=== PATIENT | male | born 1955 | race Caucasian/White ===

== ENCOUNTER → 2016-07-10 | Outpatient (CLI) | payer OTHER ==
[~2016-07-10] MED LIST: ACETAMINOPHEN325 M1 PO; ALLOPURINOL 10100 M1 PO; ARICEPT10 M1 PO; ASPIR 8181 MG PO; ASPIRIN325 PO; ATORVASTATIN CA20 MG PO; BENADRYL25 MG PO; CLONAZEPAM 1 MG1 M1 PO; HYDROCODONE-IBU1 TAB PO; LIPITOR 20 MG T20 M1 PO; LISINOPRIL10 MG PO; LOPRESSOR50 PO; MEDROL DOSPAK21 TAB PO; MELOXICAM7.5 MG PO; NAMENDA XR28 MG PO; NORVASC10 MG PO; OLANZAPINE5 MG PO; PHENERGAN 25 MG25 M1 PO; POTASSIUM PO; PREDNISONE 1 MG1 M1 PO; SERTRALINE HCL100 MG PO; TRAZODONE HCL100 MG PO; ZESTORETIC 20-1 EAC3 PO
--- NOTE | ~2016-07-10 | PFR/MVV ---
[facility] [place] [address] PULMONARY FUNCTION MVV/REPORT Name: FOREIGN STEELE Room #: REG [facility]#: [id number] Admission: 07/10/16 Attend Phys: Sunny Lacy MD Discharge: Date of : 51 Report #: [id number] THIS REPORT FOR: //name// COPIES FOR: AGE: 61 SEX/RACE: M/C >> SPIROMETRY: (BTPS) Height: 74 in cm Weight: 215 lbs kg Exam Date: 07/10/16 PRE-RX POST-RX PRED BEST %PRED BEST %PRED %CHG FVC LITERS . 5.21 . 5.5 . 106 . 5.66 . 109 . 3 FEV1 LITERS . 4.15 . 3.75 . 90 . 3.73 . 90 . -0 FEV1/FVC % . 78 . 68 . 87 . 66 . 84 . -3 IJJ25-79% L/Sec . 4.08 . 2.34 . 57 . 2.27 . 56 . -3 PEF L/SEC . 9.47 . 7.39 . 78 . 5.96 . 63 . -19 FEF50/FIF50 UNITLESS . <1.00 . 1.96 . . 2.03 . . 4 MVV L/Min . 150 . 71 . 47 f 1/Min . . 90 . >> LUNG VOLUMES: (BTPS) PRE-RX POST-RX PRED AVG %PRED AVG %PRED %CHG VC Liters . 5.21 . 5.5 . 106 . . . TLC Liters . 7.57 . 9.89 . 131 . . . RV Liters . 2.70 . 4.39 . 163 . . . RV/TLC % . 38 . 44 . 116 . . . FRC PL Liters . 4.12 . 6.63 . 161 . . . FRC N2 Liters . 4.12 . . . . . ERV Liters . . 2.24 . . . . IC Liters . . 3.16 . . . . >> DIFFUSION: DLCO ml/Min/mmHg . 26.5 . 25.5 . 96 . . . DL Ron ml/Min/mmHg . 26.5 . 25.5 . 96 . . . DLCO/VA ml/Min/mmHg . 3.81 . 3.62 . 95 . . . VA Liters . . 7.05 . . . . [facility] [address] [place] [address] PULMONARY FUNCTION MVV/REPORT Name: FOREIGN STEELE Room #: REG [facility]#: [id number] Admission: 07/10/16 Attend Phys: Sunny Lacy MD Discharge: Date of : 51 Report #: [id number] COMMENTS: COMMENTS: >> RESISTANCE: PRE-RX PRED AVG %PRED Raw Total cmH20/L/Sec . . 2.41 . Raw Insp cmH20/L/Sec . . 3.00 . Raw Exp cmH20/L/Sec . . 2.93 . Raw cmH20/L/Sec . 1.05 . 1.09 . 104 Gaw L/Sec/cmH20 . .988 . .917 . 93 sRaw cmH20 Sec . 4.34 . 5.99 . 138 sGaw l/cmH20 Sec . .230 . .167 . 72 Vtq Liters . . 5.49 . # = OUTSIDE 95% CONFIDENCE INTERVAL CALIBRATION: PRED: 3.00 ACTUAL: EXP 3.01 INSP 3.02 [facility]-OL10-06 [facility]- N-1804-4 >> INTERPRETATION/IMPRESSION: CC: Sunny Lacy MD Spirometric examination revealed mild obstructive ventilatory defect. Lung volumes are increased suggestive of airtrapping. Diffusion capacity is normal. There was no significant bronchodilator response. Flow volume loop is consistent with airflow obstruction. IMPRESSION: Mild obstructive ventilatory defect. Airtrapping suggests emphysematous type. Clinical correlation is suggested. <ELECTRONICALLY SIGNED> By: Wilder Poole MD 07/30/16 6210 Wilder Poole MD /nt
== END ==
LOC: PUL 08:43
DX: R06.00 Dyspnea, unspecified (principal)

== ENCOUNTER → 2016-07-17 | Outpatient (CLI) | payer OTHER | LOC: MRI 11:06 | DX: R20.0 Anesthesia of skin (principal); M47.816 Spondylosis without myelopathy or radiculopathy, lumbar region; M25.78 Osteophyte, vertebrae; L72.3 Sebaceous cyst ==

== ENCOUNTER → 2016-09-16 | Outpatient (CLI) | payer OTHER ==
[2016-09-16 09:38] LABS: CALCIUM 9.9 mg/dL (8.5-10.1); CREATININE 1.2 mg/dL (0.6-1.3); POTASSIUM 4.2 mmol/L (3.5-5.1)
[2016-09-16 09:43] LABS: ALBUMIN 4.2 g/dL (3.4-5.0); TOTAL BILIRUBIN 0.5 mg/dL (<0.1-1.0); TOTAL PROTEIN 8.4 g/dL (6.4-8.2)
[2016-09-16 10:23] LABS: TSH 0.654 uIU/mL (0.358-3.740)
[2016-09-16 11:52] LABS: ABSOLUTE NEUTROPHILS 11.5 thou/uL (1.4-8.2); BASOPHILS 0.2 % (0.0-2.0); EOSINOPHILS 0.4 % (0.0-3.0); HEMATOCRIT 49.4 % (42.0-52.0); HEMOGLOBIN 17.2 gm/dL (14.0-18.0); LYMPHOCYTES 13.7 % (24.0-44.0); MCH 30.5 pg (26.0-34.0); MCHC 34.8 g/dL (28.0-37.0); MCV 87.7 fL (80.0-100.0); MONOCYTES 4.3 % (1.0-8.0); PLATELET COUNT 380 thou/uL (150-400); POLYS 81.4 % (36.0-66.0); RBC 5.64 mil/uL (4.50-6.00); RDW 14.3 % (10.5-14.5); WBC 14.1 thou/uL (4.0-11.0)
[2016-09-16 11:53] LABS: MANUAL DIFF NO
[2016-09-16 14:08] LABS: HEPATITIS C VIRUS AB <0.1 (0.0-0.9); IgA 207 mg/dL (61-437); IgG 1121 mg/dL (700-1600); IgM 75 mg/dL (20-172)
[2016-09-16 17:07] LABS: HIV ANTIBODY Non Reactive (Non Reactive)
[2016-09-17 12:13] LABS: ANTI-SSA <0.2 AI (0.0-0.9); ANTI-SSB <0.2 AI (0.0-0.9)
[2016-09-18 13:08] LABS: LEAD(part of HEAVY METAL) 1 ug/dL (0-19)
== END ==
LOC: MRI 09-10 09:49
PROVIDERS: Psychiatry & Neurology Neuromuscular Medicine
DX: G62.9 Polyneuropathy, unspecified (principal); R53.1 Weakness; G50.9 Disorder of trigeminal nerve, unspecified

== ENCOUNTER → 2016-09-24 | Outpatient (CLI) | payer OTHER ==
[~2016-09-24] VITALS: Ht 193 cm; Wt 102.1 kg
[~2016-09-24] MED LIST changes: +CYMBALTA60 MG PO; +FLOMAX0.4 MG PO; +METHOCARBAMOL500 M1 PO; +TRAMADOL 50 MG50 MG PO
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
[2016-09-24 10:25] VITALS: BP 114/66
== END | disposition home or self-care (01) ==
LOC: PAIN 09-18 07:22
DX: M54.16 Radiculopathy, lumbar region (principal); F31.9 Bipolar disorder, unspecified; F43.10 Post-traumatic stress disorder, unspecified; F32.9 Major depressive disorder, single episode, unspecified; M54.12 Radiculopathy, cervical region; Z90.49 Acquired absence of other specified parts of digestive tract

== ENCOUNTER 2017-12-16 20:18 | Emergency (ER) | payer OTHER ==
[~2017-12-16] VITALS: Ht 193 cm; Wt 104.3 kg
--- NOTE | ~2017-12-16 | EKG ---
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
[2017-12-16 22:00] LABS: ABSOLUTE NEUTROPHILS 5.8 thou/uL (1.4-8.2); BASOPHILS 1.1 % (0.0-2.0); EOSINOPHILS 3.1 % (0.0-3.0); HEMATOCRIT 44.1 % (42.0-52.0); HEMOGLOBIN 15.4 gm/dL (14.0-18.0); LYMPHOCYTES 31.1 % (24.0-44.0); MCH 30.2 pg (26.0-34.0); MCV 86.3 fL (80.0-100.0); MONOCYTES 5.2 % (1.0-8.0); PLATELET COUNT 232 thou/uL (150-400); POLYS 59.5 % (36.0-66.0); RDW 14.1 % (10.5-14.5); WBC 9.8 thou/uL (4.0-11.0)
[2017-12-16 22:09] LABS: CALCIUM 8.9 mg/dL (8.5-10.1); CREATININE 1.1 mg/dL (0.7-1.3); POTASSIUM 3.4 mmol/L (3.5-5.1)
== END 2017-12-17 02:04 | disposition home or self-care (01) ==
LOC: ER 20:18
PROVIDERS: Emergency Medicine
DX: I10 Essential (primary) hypertension (principal); R26.9 Unspecified abnormalities of gait and mobility; E78.00 Pure hypercholesterolemia, unspecified; M10.9 Gout, unspecified; G43.909 Migraine, unspecified, not intractable, without status migrainosus; F03.90 Unspecified dementia, unspecified severity, without behavioral disturbance, psychotic disturbance, mood disturbance, and anxiety; F17.210 Nicotine dependence, cigarettes, uncomplicated; Z88.1 Allergy status to other antibiotic agents; Z88.5 Allergy status to narcotic agent

== ENCOUNTER → 2019-04-04 | Outpatient (CLI) | payer OTHER ==
[2019-04-04 17:03] LABS: EOSINOPHILS 2.6 % (0.0-3.0)
[2019-04-04 17:04] LABS: ABSOLUTE NEUTROPHILS 7.4 thou/uL (1.4-8.2); BASOPHILS 0.9 % (0.0-2.0); HEMATOCRIT 47.7 % (42.0-52.0); HEMOGLOBIN 16.6 gm/dL (14.0-18.0); LYMPHOCYTES 23.6 % (24.0-44.0); MCH 30.9 pg (26.0-34.0); MCHC 34.9 g/dL (28.0-37.0); MCV 88.5 fL (80.0-100.0); MONOCYTES 6.6 % (1.0-8.0); PLATELET COUNT 245 thou/uL (150-400); POLYS 66.3 % (36.0-66.0); RBC 5.39 mil/uL (4.50-6.00); RDW 13.8 % (10.5-14.5); WBC 11.1 thou/uL (4.0-11.0)
[2019-04-04 17:26] LABS: ALBUMIN 4.2 g/dL (3.4-5.0); ANION GAP 8 mmol/L (7-16); BUN 17 mg/dL (7-18); CALCIUM 9.6 mg/dL (8.5-10.1); CHLORIDE 102 mmol/L (98-107); CHOLESTEROL 170 mg/dL (<200); CO2 31 mmol/L (21-32); CREATININE 1.1 mg/dL (0.7-1.3); GLUCOSE 122 mg/dL (74-106); HDL CHOLESTEROL 22 mg/dL (>40); POTASSIUM 3.9 mmol/L (3.5-5.1); SGPT 65 U/L (30-65); SODIUM 141 mmol/L (136-145); TC:HDL 7.7 Ratio (Not establshd); TOTAL BILIRUBIN 0.5 mg/dL (<0.1-1.0); TOTAL PROTEIN 7.9 g/dL (6.4-8.2); TRIGLYCERIDE 784 mg/dL (<150); URIC ACID* 8.8 mg/dL (2.6-7.2); VLDL 157 mg/dL (<40)
[2019-04-04 17:27] LABS: LDL CHOLESTEROL ND mg/dL (<100); SERUM ASSESSMENT Moderate Lipemia
[2019-04-04 17:48] LABS: SGOT 55 U/L (15-37)
== END ==
LOC: LAB 16:33
PROVIDERS: Family Medicine
DX: R05 Cough (principal); I10 Essential (primary) hypertension; E78.5 Hyperlipidemia, unspecified; M10.40 Other secondary gout, unspecified site

== ENCOUNTER → 2019-04-21 | Outpatient (CLI) | payer OTHER | LOC: CAT 09:23 | DX: I77.1 Stricture of artery (principal); R16.0 Hepatomegaly, not elsewhere classified; K76.0 Fatty (change of) liver, not elsewhere classified; I70.0 Atherosclerosis of aorta; N40.0 Benign prostatic hyperplasia without lower urinary tract symptoms; Z90.49 Acquired absence of other specified parts of digestive tract ==

== ENCOUNTER → 2021-05-01 | Outpatient (CLI) | payer OTHER | LOC: SJCVC 13:45 | PROVIDERS: ATTEND Internal Medicine | DX: I10 Essential (primary) hypertension (principal); Z13.220 Encounter for screening for lipoid disorders; R07.2 Precordial pain; G89.29 Other chronic pain; J44.9 Chronic obstructive pulmonary disease, unspecified; N40.0 Benign prostatic hyperplasia without lower urinary tract symptoms; H93.19 Tinnitus, unspecified ear; F17.210 Nicotine dependence, cigarettes, uncomplicated; Z72.89 Other problems related to lifestyle; Z79.82 Long term (current) use of aspirin; Z79.899 Other long term (current) drug therapy ==